=== PATIENT | female | born 1950 | race Caucasian/White ===

== ENCOUNTER 2025-03-22 06:35 | Emergency (ER) | payer OTHER, BC ==
[2025-03-22 06:49] VITALS: BP 122/77; PULSE 114; RESP 20; TEMP 98.2; BMI 25.0
[2025-03-22] MEDS ORDERED: ALBUTEROL SO4 2.5/IPRATROPIUM 0.5 INH SOL 3 ML VIAL.NEB. NEB ONE ×2 (07:08→07:10)
[2025-03-22] MEDS ORDERED: predniSONE 20 MG TABLET (UD) ONE (07:08)
[2025-03-22] MEDS: ALBUTEROL SO4 2.5/IPRATROPIUM 0.5 INH SOL 3 ML VIAL.NEB. NEB ONE (07:14)
[2025-03-22] MEDS: predniSONE 20 MG TABLET (UD) PO ONE (07:14)
== END 2025-03-22 08:00 | disposition home or self-care (01) ==
LOC: FER 06:35
PROC: 3E0F7GC Introduction of Other Therapeutic Substance into Respiratory Tract, Via Natural or Artificial Opening (ICD-10-PCS; principal; 2025-03-22)
DX: J40 Bronchitis, not specified as acute or chronic (principal); R05.9 Cough, unspecified
CPT/HCPCS: 71046-TC-FY; 99283-25